=== PATIENT | female | born 1970 | race Caucasian/White ===

== ENCOUNTER 2023-09-14 09:47 | Outpatient (OUT) | payer OTHER, SELFPAY ==
[2023-09-14 11:00] LABS: Estimated Average Glucose 120 mg/dL; Glycohemoglobin A1C 5.8 % (4.5-6.2)
[2023-09-14 11:10] LABS: Basophils Absolute Auto 0.1 10^3/uL (0.0-0.1); Basophils Percent Auto 0.8 % (0.2-2.0); Eosinophils Absolute Auto 0.2 10^3/uL (0.0-0.7); Eosinophils Percent Auto 3.1 % (0.9-7.0); Hematocrit 44.1 % (36.0-48.0); Hemoglobin 14.5 g/dL (12.0-16.0); Immature Granulocytes Abs Auto 0.01 10^3/uL (0.00-0.03); Immature Granulocytes Pct Auto 0.2 % (0.0-0.5); Lymphocytes Absolute Auto 2.3 10^3/uL (1.2-3.8); Mean Corpuscular HGB Conc 32.9 g/dL (29.9-35.2); Mean Corpuscular Hemoglobin 29.1 pg (26.7-34.0); Mean Corpuscular Volume 88.4 fL (81.0-99.0); Mean Platelet Volume 11.3 fL (9.5-13.5); Monocytes Absolute Auto 0.5 10^3/uL (0.3-0.8); Monocytes Percent Auto 7.1 % (1.7-12.0); Neutrophils Absolute Auto 3.5 10^3/uL (1.4-6.5); Neutrophils Percent Auto 53.8 % (43.0-75.0); Platelet Count 267 10^3/uL (150-450); Red Blood Count 4.99 10^6/uL (4.20-5.40); Red Cell Distribution Width 12.6 % (11.0-15.0); White Blood Count 6.5 10^3/uL (4.0-11.0)
[2023-09-14 11:12] LABS: Alanine Aminotransferase 37 U/L (14-59); Albumin Globulin Ratio 1.2; Alkaline Phosphatase 112 U/L (46-116); Anion Gap 15.6; Aspartate Amino Transferase 20 U/L (15-37); BUN Creatinine Ratio 13.8; Bilirubin Total 0.5 mg/dL (0.2-1.0); Calcium 8.9 mg/dL (8.5-10.1); Carbon Dioxide 25.5 mmol/L (21.0-32.0); Chloride 107 mmol/L (98-107); Chol HDL Ratio 3.9; Cholesterol 202 mg/dL (<=200); Estimated GFR (African America >60 (>=60); Estimated GFR (Non-African Ame >60 (>=60); Free T3 2.54 pg/mL (2.18-3.98); Globulin 3.3 g/dL; Glucose 135 mg/dL (74-106); HDL Cholesterol 52 mg/dL (40-60); Potassium 4.1 mmol/L (3.5-5.1); Sodium 144 mmol/L (136-145); Thyroid Stimulating Hormone 4.008 uIU/mL (0.358-3.740); Total Protein 7.3 g/dL (6.4-8.2); Triglycerides 103 mg/dL (<=150); VLDL CHOLESTEROL 20.6 mg/dL
== END 2023-09-14 09:48 | disposition home or self-care (01) ==
LOC: LAB 09:53
PROVIDERS: PCP Family Medicine; Visit Provider Family Medicine
DX: Z00.00 Encounter for general adult medical examination without abnormal findings (principal); R53.83 Other fatigue
CPT/HCPCS: 36415; 80053; 80061; 83036; 84436; 84443; 84481; 85025

== ENCOUNTER 2024-06-02 08:36 | Outpatient (OUT) | payer OTHER, SELFPAY ==
--- NOTE | 2024-06-02 08:38 | US_ITS ---
The [address] [address] Patient Name: GORAN MERRILL MRN: [id number] date: 1970 Sex: F Assigned Patient Location: US Current Patient Location: Accession/Order Number: [id number] Exam Date: 06/03/2024 20:55 Report Date: 06/03/2024 20:57 At the request of: JOVANY BLANCAS MD Procedure: US soft tissue head and neck Ultrasound of the neck to assess mass anterior to the left ear Hypoechoic vascular mass identified. This may be within the left parotid gland. This measures 3.1 x 2.5 x 1.7 cm. US/US soft tissue head and neck IMPRESSION: Hypoechoic vascular 3.1 cm mass in region of lump. This may be within the parotid gland. Impression dictated by: Rajendra Cantrell M.D.06/03/2024 8:57 PM Dictation Location: [place] [address] Electronically authenticated by: [id number] Y Date: 06/03/2024 20:57
== END 2024-06-02 08:37 | disposition home or self-care (01) ==
LOC: US 08:36
PROVIDERS: PCP Family Medicine; Visit Provider Family Medicine
DX: J01.90 Acute sinusitis, unspecified (principal); R22.0 Localized swelling, mass and lump, head
CPT/HCPCS: 76536

== ENCOUNTER 2024-06-09 07:51 | Outpatient (OUT) | payer OTHER, SELFPAY ==
--- NOTE | 2024-06-09 07:55 | CT_ITS ---
The [address] [address] Patient Name: GORAN MERRILL MRN: [id number] date: 1970 Sex: F Assigned Patient Location: CT Current Patient Location: Accession/Order Number: [id number] Exam Date: 06/11/2024 08:05 Report Date: 06/11/2024 08:41 At the request of: JOVANY BLANCAS MD Procedure: CT soft tissue neck w con CT SOFT TISSUE NECK WITH CONTRAST CLINICAL DATA: Nonpainful mass at the left neck near the angle of the jaw. COMPARISON: Ultrasound 06/02/2024 Spiral images were obtained through the neck following 100 mL [address]ip[address] exam was performed using one or more following dose reduction techniques: Automated exposure control, adjustment of the mA and/or kV according to patient size, or use of iterative reconstruction technique. Calcification is seen at the right thyroid lobe. This was also visualized on thyroid ultrasound from August 2018. The submandibular glands are symmetric. There is a heterogeneously enhancing, lobulated soft tissue mass within the left parotid gland. It measures 3.0 x 2.6 x 2.2 cm in size. It correlates with the recent ultrasound exam. There are bilateral shotty cervical lymph nodes, largest in the jugulodigastric region measuring up to 13 - 14 mm in short axis dimension. There is no tonsillar enlargement. The epiglottis and vocal cords are within normal limits. The airway is patent throughout its course with normal appearance of the mucosal surfaces. There is no prevertebral soft tissue swelling. Degenerative changes seen at the spine, greatest at C6-7. There is minor polypoid mucosal thickening at the base of the left maxillary sinus. The remaining imaged paranasal sinuses and mastoid air cells are clear. The upper imaged lungs show no contributory findings. CT/CT soft tissue neck w con IMPRESSION: LEFT PAROTID MASS. ALTHOUGH AN ABNORMAL LYMPH NODE IS IN THE DIFFERENTIAL, NEOPLASM IS NOT EXCLUDED. ENT FOLLOW-UP IS THEREFORE SUGGESTED. SHOTTY CERVICAL LYMPH NODES. Impression dictated by: Melissa Trinidad M.D.06/11/2024 8:41 AM Dictation Location: [place] [address] Electronically authenticated by: [id number] Date: 06/11/2024 08:41
--- OUTSIDE RECORDS SUMMARY | 2024-06-09 07:55 | XMS_ITS | CCD ---
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 Name Role Phone DR JOVANY MELO Attending Unavailable NELSONY, DR MANZO Consulting Unavailable NELSONY, DR MANZO Primary Care Unavailable HOY, DR MANZO Admitting Unavailable HOY, DR MANZO Attending Unavailable NELSONY, DR MANZO Consulting Unavailable NELSONY, DR MANZO Primary Care Unavailable HOY, DR MANZO Admitting Unavailable HOY, DR MANZO Consulting Unavailable MAGALIS, DR MANZO Primary Care Unavailable NELSONY, DR MANZO Admitting Unavailable NELSONY, DR MANZO Attending Unavailable NELSONY, DR MANZO Consulting Unavailable NELSONY, DR MANZO Primary Care Unavailable HOY, DR MANZO Admitting Unavailable MAGALIS, DR MANZO Attending Unavailable Jovany Melo Primary Care Physician Lorena Blair Referring Unavailable Lorena Blair Attending Lorena Marques Admitting Unavailable Allergies Allergy Classification Reported Allergen(s) Allergy Type Date of Onset Reaction(s) Facility (1 source) bee venom Drug allergy (disorder) [facility] Repository (2 sources) Desonide; Translations: [desonide topical] Drug Allergy 09-17-2017 Unknown [facility] Repository (1 source) contact metal agent Drug allergy (disorder) 09-17-2017 [facility] Repository (1 source) Desonide; Translations: [desonide topical] Drug Allergy [facility] Repository Medications Current Medications Medication Drug Class(es) Dates Sig (Normalized) Sig (Original) acetaminophen 325 mg / butalbital 50 mg / caffeine 40 mg oral capsule (1 source) Barbiturate, Central Nervous System Stimulant, Methylxanthine Start: 02-26-2019 take 1 capsule by mouth every four hours for headache APAP/butalbital/ caffeine 325 mg-50 mg-40 mg oral capsule 1 cap(s), Oral, q4hr for headache, 20 cap(s), Refill(s) 0, [id number] Start Date: 02/26/19 Status: Ordered Augmentin (1 source) Penicillin-class Antibacterial Start: 10-09-2019 Augmentin Refills(s) 0 Start Date: 10/09/19 Status: Ordered glipiZIDE (1 source) Sulfonylurea Start: 10-09-2019 glipiZIDE Oral, Daily, Refills(s) 0 Start Date: 10/09/19 Status: Ordered Topamax (1 source) Start: 10-09-2019 Topamax Oral, BID, Refills(s) 0 Start Date: 10/09/19 Status: Ordered Problems Active Problems Problem Classification Problem Date Documented Date Episodic/Chronic Abdominal pain (1 source) Right flank pain 10-09-2019 Episodic Calculus of urinary tract (1 source) Ureteric stone 10-09-2019 Episodic Coagulation and hemorrhagic disorders (1 source) Blood coagulation disorder 10-09-2019 Chronic Diabetes mellitus without complication (1 source) Diabetes mellitus 10-09-2019 Chronic Epilepsy; convulsions (1 source) 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 Genitourinary symptoms and ill-defined conditions (2 sources) Microscopic hematuria; Translations: [Nocturia] 10-09-2019 Episodic Other inflammatory condition of skin (1 source) Lupus erythematosus 10-09-2019 Chronic Other upper respiratory infections (1 source) Chronic pansinusitis; Translations: [CHRONIC PANSINUSITIS] Onset: 12-31-2021 Chronic Other upper respiratory infections (4 sources) Acute sinusitis, unspecified; Translations: [ACUTE SINUSITIS UNSPECIFIED] Onset: 12-29-2021 Episodic Unclassified (3 sources) CONTACT W/AND (SUSP) EXPOS COVID-19; Translations: [CONTACT W/AND (SUSP) EXPOS COVID-19] Onset: 09-22-2021 Viral infection (4 sources) COVID-19; Translations: [COVID-19] Onset: 02-19-2021 Past or Other Problems Problem Classification Problem Date Documented Da te Episodic/Chronic Immunizations and screening for infectious disease (1 source) Encounter for immunization; Translations: [ENCOUNTER FOR IMMUNIZATION] Onset: 02-26-2021 Episodic Unclassified (1 source) CONTACT W/AND (SUSP) EXPOS COVID-19; Translations: [CONTACT W/AND (SUSP) EXPOS COVID-19] Onset: 09-21-2021 Results Test Name Value Interpretation Reference Range Facility Coding Summary.on 03-23-2022 Coding Summary. [id number] Gh0bWw+PGhlYWQ+PE1FV WHrC40yjXFsfO1KC2fDO O1FOYVFAPGQUJ3EFX5sh SE7LVrlM5FfyiPr VmnpaXLiGQ57ZBo0OEF0 tEikJRcqrM0xiKKnD5o9 ClCkNS38wG79JKquNKEd OwW5PuHahimgqFTw E6nxOtMlvSTyIzg+PHRh YmxlIHdpZHRoPScxMDAl WvJgxLyyVM5vJx9qAKBt LWNvbGxhcHNlOiBj u1zcBDPbRDtcTD8yeVwx Z7TooMM3NJTkt7k0Vj72 dHI+PEAfHHM3xXbsVEel h785GpCuf0ttHEZ3 hPOlAPyvMOX3F69xl5T2 NQPqRPPoKFS2dYP9iR6u sOzaidvaR1MpyYNmQyJ9 UQF7yIDktJ9fzBgv zphrzW4mKlj+R60TVU6Z ZZQXXY5EXgf8O6QzIkuw dHI+MU06LVXvGH37sPZj gFCnt6rnmEc2SrDa OIQbSAL3tJcmXGtus3Wr HQTyF36eaQDdp2U3QZWh lHwoxZAaPuWneHV8uE1n VNhexccja6fmjzuw Arsfg4tgpp02gD17X14p CPfcIXPoCOW9LBCzKIBt hFdjmo3tiV1pQu7+IDxj m4fxj5nndBv0DaIz OATdxcJqzNezDAG8y1Of Ar68M6GxvAwjq3JjViz2 sn83lKVom3R0bIM7BAsa CJWftC8sUJrdHzL8 YXCiRiQekQ48sAUrRPjm Mb1rxJuukChqTE8pNLQf qxgzQZHouU9eJLUwcBNn fKokWX3nMSIioakc r182EaQrWBP3LEMvzWAl T1QxkG6aVoRaHRQiFSHm P0JnfZHdJAkwM599IRzx PzV5DNNlwkZjI2Sq YUEqrQcoNgJ4l0S6Hf1M c7NnzljtXAX8QUdyBMOb RjX5SuXwTqB4A9BrVpq5 QAIvkXgzZZ6vA1Ot CHIcwbjvmomvwLO6ARBz JNZzmY55qMQoCKjcZe4r x4K6o964BUEoUHPcxY63 Mx7enRgrXHZxpGOG fS8qguhql6pgiwjlJxNg TIGpQIv8AIu6FUWfyGma LiSxAVT5WhT2DZQ7jWNw oN5efZyxjzupjU8x Oyc+Q87vnM3sXNF4HKH7 uufjIEEbxnCsTU90YW12 D4MiPigbeJAfeEF+PGRp bbZruPoeZS8pDoDu o3jlf1QyXQegH9NyPFXq NYxgTjz6DZBbSYI8yEC8 vW1hZVSoXCazt0G6yEN2 B4AodpUdde7iv1lm WNQpQYklL14vdANiw6F4 DOEkfOF5IOSthRwmZcUg uT68Tfd+HDIvdHmui1Wn Bhhux4yii9wdpRe2 IjMwJSIgdmFsaWduPSJ0 e4HqGn32S52fVAimRPVu CDMkJDHqEGTohNlznm8d yY4kWw1+PGNvbCB3 lEU0dU2pUTAbFaH8HJpr C640NfFhqDTuUdnfn4il j9adxDf7YyCkUIWkxjNd hVghUOF5s5GdRb26 W94mGLzxSTFgQCEuCWXx AKQuoTnild7kpY4uWg7+ WU7mn3tixo57uF05aTY+ MBGzHVB4kKngZCyl OXWbtM2ePWeqMlZ6VAOw IwDdgI40rELhWFhjMv8o sLmmpZjpNV2aNTQsxrfl l018GdSuy6coHWNx iKGxKWiaJSF9N37gw4P7 FNPqSRIiXCW5yOD2gX9f bGlnbjogbGVmdDsgdmVy vEzbIJtlNTmpR207 IHRvcDsnPlBhdGllbnQg UuBjEKm2L6TnUfx8PQXd dHvjYY3pbGGtVDcmNg7l xPallZeiJY2tCZEw drewl824WzPqm2alODUt mCLxWUduRGJ6U82od4J7 TTDjBMJsGDY3wJW1mI4b bGlnbjogbGVmdDsg teTzgPojPCdiDNmcB802 IHRvcDsnPkJpcnRoIERh gAL6FE30QB83aSAxk5E0 gLO3R6FsRHCbtrqa dpmrxYY9APNmAKWvvP80 Ht0spUhzUd4nAPPvQGW0 RHIouEFcG1NiqQ5rHwOx YCQwYOPkW1YjsGMy DJqlU646RVitDrL7CGAk hpUoR6KwLZTjxLtsCmG0 x6A2Aq3PC8L8YF70NF20 wGVtq7D1kDW3M9Yp HKIxeskurivhvBO6WVGv BMFjrD70Ge1unZubZm5g TJBkRCY4YIJncISiP6Tu cT8dZoSoKFUoYFQy G2SknIGlJBchY320NAne CeO7DPIkqxErX4LkTDXv iFgpMoD4b9G4Jt3BLKn1 MO33GO38yEVgi1O4 aAC6S5JwUARwfwviohfy pOZ3YEHaWLLuvA39Yz9r iEleFm3qWQNgQLF9XMXh wBKtD6AsfK8eGgOl IXDuWTSgZ2UyuVXvNSan M563QEorOpI4PIIturUb P4MvDXRwaXolJvF7y5O5 Pm9AXAUsPD47OGE6 nAC3KL74LS28V0QrKlof dGFibGU+PHRhYmxlIHdp ZHRoPScxMDAlJyBzdHls UA8xTg4gPGEyNZVs uWdsxKInVzOmm1otJVQg QSthFN9ydYkaD7UamAT1 LZKqz3d4Xf33C01gD6Mf dXA+OHOcrQB5yIK6 lB5uMvTqXdC8UFrlB086 VcSxrXBcDtkru8inn0qs lXh0TzP3NWRnymAwgLln BHJ9i3CwRu90O04q IHdpZHRoPSIxNSUiIHZh mXiphj7txF2rMq8+PGNv bGU7kFI2dY2eLhCoEhN7 EBxqI621OvYyjWRj Awbpw3qwt2jeuWc5EgYs XHQhwkYsnZzgXBX0i0An Bb42L2MvwPzvm4OpCik5 qs27lHWsd6B6xIL0 A1HhRQEcwbofzPOioMql SX0xBTRfjfbmMFZhaE1l VCOjF8i2XbVmEnO0WQjc O6PkxzE1WMUlcOHq WPnbPBR3E06vs5N1JPCn XWRfAPN8nRG3iI8vsKpc bjogbGVmdDsgdmVydGlj CFatUFruL458JYNj xCeeZQWjvQ4lDDIyqBKl yDdzYQ1gBGMdkdunZcRP ZBvTYpuqAM8JUYhXBMw2 W2ArVbs2NDVswWbb RR9ozWHtWCktPy0jjTte yMqgJT0tJBZwtlbvOBLe lY6zOOWlnIVwnGsaXS6u LOYxqbyxm614GuIz FYT0VTXgkXDrX6SntD7w NdZqCBSwVQSqT8SqbPYy UVrsF335FVdvOqC2AIOc skPmM4LqGHHsdUow CbQ6u6U9Be6uQU3iVS7y CYcwEU13RE86cDQzn5N8 gJZ6T2MzNLKodyxswigu iWW5TDIkJWEujV21 sZIsZBlvJn4kq6Z4x862 EVWdWZMldD97Xz2rdZrz KFLzsWDZpY4ihjjmd6os cjogIzAwMDAwMDt0 PZo5FBIqhGgbUkRgRBP1 NqH2RRH8kVDulG9wjAia zijmoI8rIod+NTEgWWVh fdD1E2TvXgo7FEVs uTutYP1hlJBeISagKt0s nXyrfWgyDD1aQYLqqwav MFIejV5hPSVvbKGwiBcs GB2zFOTtxrqef081 SjGaDBO1TATtqNXeS4Us gC6iKrGuTEAeDFApP1Ju aZAfWUepS394AZaaWbC0 JSEgnjDqM9QbLBMk mRkqMwL4x6A2Ta2WZT8z gYD8G9BlMgk5EOSwhNos AG5reDXjOKktXj9rlCpm iFxrKS8zTPWkrsxm KQVqhI9nSBNyzHKoqVuv XN9pEUWtwwirc730WlUf IQB6WSOqbBRhJ8WgeU8s JzFmXJLzAVCrU7Xt mMYyRAzcS722YUadBoH3 LLDwevFdF3DaFOKdgMwa CvG6g5S3De1XpSYcILZt LZ21ET52AP40M9Ic PjwvdGFibGU+PHRhYmxl IHdpZHRoPScxMDAlJyBz cRfoOR6rYl9bGFNjZHCb jMesvAJaNqJwu2px BRQyEDmzON6ffAtqT1Do pCO7XZUgf8q2Bu73B11i K1BtuKI+DURwoXK6dDM2 lH6eQzHwXtA1AAlw O201RmRiyKDmMlbsj1vg o2fteSn9AnZsPZXskyBl yYwcGCK2b5WnPz28F83u IHdpZHRoPSIyMCUi TFKfqWunqp3yaN0gLn1+ XZEpeYJ6xSS0jE1vLwJl BhH9ZSmdA412LgAjdLOj CjaoL27aN8AlyEE+ DHEzLew1SHXjnAgzNK8w gXQlEXlrWz8cQJA4HkBa LhUzXIxhO3AvIAVyzjpg qzpboRM7FUVjUCDo sK85Hk5hrRhdXf5tCCZu CHU5WNAlqDKtW8GjdM1y JrRtMYTtKJVfK2FdrEQs YCtkO551AMorUdV1 JRRbawSkF6SeJBMupKkb QfE2q2X0Hw3LkOippSBs ZK1kTkXiJEw6C2UrRfm2 YFUcoQhnMQ1xfQLi FMucIa2vjIvinGfdHB5l AVQjgdcqh359UlVyl7fw BXEtfUNeSCcpWHQ6F15s a2K5SZCpAYUhDFH5 fRV5iF3lnHaovypzhVQo dDsgdmVydGljYWwtYWxp N410LUMldWvsTqDWCcj1 Q9HvQqd0CKDllDpb DP0gkPNyVXjeBf2rpRwl wCnzEH5oFOIkdvbyj553 EmDiv9wyPEJyrTMrPOoj UCQ6R89ha1G9WFYw RKPdSIX1hNC4tQ9qsMnh bjogbGVmdDsgdmVydGlj YWjqJNceD946NUFmjGsl Nc9VRzy9R8CnRyy0 DNFsbPvmLU5ijYLjSNrw Wp5tmXhgkNkbKY4sNQAs pmwep013WrRuq6djVYGk tXKsOAwxUXD1N78j x5J3RUAmSOJkOOY9cIU2 iK8ysAprkdjbyJZvjFqu ieSteJziBNwfOAsjU722 IHRvcDsnPlBheWVy OjwvdGQ+LJ44wu18D9Mp HrxjDwb9CLNhHZT0dCP0 jQ4oTIKkUBdrv5N8vXH4 F8LcafPnzx6rf6oq YXBz (more content not included)... Normal [facility] BMPOrdered By: SYSTEM SYSTEM on 03-19-2022 Anion gap [Moles/Vol] 15 mmol/L Normal 6-16 FT Remisol Comment on above: Performed By: #### 2 [id number], [id number], [id number] #### [facility] [address] [place] [address] Calcium [Mass/Vol] 9.2 mg/dL Normal 8.9-11.1 FT R emisol Comment on above: Performed By: #### 2 [id number], [id number], [id number] #### [facility] [address] [place] [address] Chloride [Moles/Vol] 103 mmol/L Normal 101-111 FT Remisol Comment on above: Performed By: #### 2 [id number], [id number], [id number] #### [facility] [address] [place] [address] CO2 [Moles/Vol] 23 mmol/L Normal 21-31 FT Jorge Luis lien Comment on above: Performed By: #### 2 627173, 6870585, [id number] #### [facility] [address] [place] [address] Creatinine [Mass/Vol] 0.9 mg/dL Normal 0.5-1.3 FT Remisol Comment on above: Performed By: #### 2 837330, 3281341, [id number] #### [facility] [address] [place] [address] Glucose [Mass/Vol] 98 mg/dL Normal 55-199 [facility] R emisol Comment on above: Result Comment: If t his glucose result represents a fasting glucose, interpretation should refer to the following reference range: 55-99 mg/dL Performed By: #### 2 758600, [id number], [id number] #### [facility] [address] [place] [address] Potassium [Moles/Vol] 4.0 mmol/L Normal 3.5-5.3 [facility] Remisol Comment on above: Performed By: #### 2 946941, 2679086, [id number] #### [facility] [address] [place] [address] Sodium [Moles/Vol] 137 mmol/L Normal 135-145 [facility] R emisol Comment on above: Performed By: #### 2 924357, 6510604, [id number] #### [facility] [address] [place] [address] Urea nitrogen [Mass/Vol] 12 mg/dL Normal 5-21 FT Remisol Comment on above: Performed By: #### 2 025496, [id number], [id number] #### [facility] [address] [place] [address] BMPon 03-19-2022 Urea nitrogen/Creatinine [Mass ratio] 13 No Units Normal 10-20 [facility] Comment on above: Performed By: #### 2 440835, 4857393, [id number] #### [facility] [address] [place] [address] CBC w/IndicesOrdered By: Gorge Echevarria on 03-19-2022 Erythrocyte distribution width (RBC) [Ratio] 13.2 % Normal 10.9-14.2 [facility] HemeAutoSS Comment on above: Performed By: #### 2 021247, [id number], [id number] #### [facility] [address] [place] [address] Hematocrit (Bld) [Volume fraction] 42.2 % Normal 34.0-46.0 [facility] HemeAutoSS Comment on above: Performed By: #### 2 711902, 3555080, [id number] #### [facility] [address] [place] [address] Hemoglobin (Bld) [Mass/Vol] 14.2 g/dL Normal 12.0-16.0 FT HemeAutoSS Comment on above: Performed By: #### 2 919815, 9976008, [id number] #### [facility] [address] [place] [address] MCH (RBC) [Entitic mass] 28.7 pg Normal 27.0-34.0 FT HemeAutoSS Comment on above: Performed By: #### 2 158556, 9927465, [id number] #### [facility] [address] [place] [address] MCHC (RBC) [Mass/Vol] 33.5 g/dL Normal 31.4-36.0 FT [facility]e[employer] Comment on above: Performed By: #### 2 079854, 6832678, [id number] #### [facility] [address] [place] [address] MCV (RBC) [Entitic vol] 85.6 fL Normal 80.0-100.0 FT HemeAutoSS Comment on above: Performed By: #### 2 268320, 1256391, [id number] #### [facility] [address] [place] [address] Platelet mean volume (Bld) [Entitic vol] 9.4 fL Normal 6.4-10.8 FT [facility]e[employer] Comment on above: Performed By: #### 2 262340, 7423442, [id number] #### [facility] [address] [place] [address] Platelets (Bld) [#/Vol] 261.0 E9/L Normal 150.0-500.0 FT HemeAutoSS Comment on above: Performed By: #### 2 019684, 9620044, [id number] #### [facility] [address] [place] [address] RBC (Bld) [#/Vol] 4.9 E12/L Normal 4.3-5.9 [facility] HemeAutoSS Comment on above: Performed By: #### 2 804230, 6091198, [id number] #### [facility] [address] [place] [address] WBC corrected for nucl RBC Auto (Bld) [#/Vol] 7.8 E9/L Normal 4.0-11.0 [facility] HemeAutoSS Comment on above: Performed By: #### 2 147183, 5655325, [id number] #### [facility] [address] [place] [address] CHEMISTRYOrdered By: SYSTEM SYSTEM on 03-19-2022 GFR/1.73 sq M.predicted among blacks MDRD (S/P/Bld) [Vol rate/Area] mL/min/1.73 m2 Normal >=59mL/min/1. 73 m2 [facility] Chem S GFR/1.73 sq M.predicted among non-blacks MDRD (S/P/Bld) [Vol rate/Area] mL/min/1.73 m2 Normal >=59mL/min/1. 73 m2 [facility] Chem S Urea nitrogen/Creatinine [Mass ratio] 13 mg/mg Normal 10 - 20 [facility] Remisol Consent for Treatmenton 03-01 Consent for Treatment [id number] #1.00CD:127 Normal [facility] eGFRon 03-19-2022 GFR/1.73 sq M.predicted among blacks MDRD (S/P/Bld) [Vol rate/Area] mL/min/{1.73_m2} Normal >=59 [facility] Comment on above: Order Comment: Order added by Discern Expert. Result Comment: eGFR is race adjusted. AA=. Performed By: #### 2 833973, 6077757, [id number] #### [facility] [address] [place] [address] GFR/1.73 sq M.predicted among non-blacks MDRD (S/P/Bld) [Vol rate/Area] mL/min/{1.73_m2} Normal >=59 [facility] Comment on above: Order Comment: Order added by Discern Expert. Result Comment: Fuse Coiler bella kidney disease could be indicated at eGFR's of less than 60 mL/min/1.73m2. Kidney failure is indicated at less than 15 mL/min/1.73m2. Performed By: #### 2 328329, 1358149, [id number] #### [facility] [address] [place] [address] Physician Orderon 03-18-2022 Physician Order [id number] #1.00CD:127 Normal [facility] Covid-19 PCR (CVDTB)on SARS-CoV-2 (COVID-19) RNA FRANKLIN+probe Ql (Unsp spec) Not detected Normal NOT DETECTED [facility] Comment on above: Result Comment: This test is not yet approved or cleared by the [place] FDA. When there are no FDA-approved or cleared tests available, and other criteria are met, FDA can make tests available under an emergency access mechanism called an Emergency Use Authorization (EUA). The EUA for this test is supported by the [place] of Health and Human Service's (HHS's) declaration that circumstances exist to justify the emergency use of in vitro diagnostics for the detection and/or diagnosis of the virus that causes COVID-19. This EUA will remain in effect (meaning this test can be used) for the duration of the COVID-19 declaration justifying emergency of IVDs, unless it is terminated or revoked by FDA (after which the test may no longer be used). When diagnostic testing is negative, the possibility of a false negative should be considered in the context of a patient's recent exposures and the presence of clinical signs and symptoms consistent with SARS-CoV-2. Performed By: #### C VDTB #### [facility] [address] [place], [place] [address] Dr. Aldo Sandhu INFLUENZA A AND B AGon 12-29 INFLUANEGH SEE BELOW Normal [facility] Comment on above: Result Comment: Nega tive for Flu A protein angiten. Infection due to Flu A cannot be ruled out. Flu A angiten in the sample may be below the detection limit of the test. Performed By: #### I NFLUAB #### [facility] [address] [place] [address] Dr. Aldo Sandhu INFLUBNEG SEE BELOW Normal [facility] Comment on above: Result Comment: Nega tive for Flu B protein antigen. Infection due to Flu B cannot be ruled out. Flu B antigen in the sample may be below the detection limit of the test. Performed By: #### I NFLUAB #### [facility] [address] [place] [address] Dr. Aldo Sandhu INFLUENZA A AG Negative Normal NEGATIVE SEE COMMENT [facility] Comment on above: Performed By: #### I NFLUAB #### [facility] [address] [place] [address] Dr. Aldo Sandhu INFLUENZA B AG Negative Normal NEGATIVE SEE COMMENT [facility] Comment on above: Performed By: #### I NFLUAB #### [facility] [address] [place] [address] Dr. Aldo Sandhu INTERNAL CONTROLS Within Normal Limits Normal Wi thin Normal Limits [facility] Comment on above: Performed By: #### I NFLUAB #### [facility] [address] [place] [address] Dr. Aldo Sandhu Covid-19 PCR ([facility])on 08-29 SARS-CoV-2 (COVID-19) RNA FRANKLIN+probe Ql (Unsp spec) Detected Critically abnormal NOT DETECTED [facility] Comment on above: Result Comment: This test is not yet approved or cleared by the [place] FDA. When there are no FDA-approved or cleared tests available, and other criteria are met, FDA can make tests available under an emergency access mechanism called an Emergency Use Authorization (EUA). The EUA for this test is supported by the [place] of Health and Human Service's declaration that circumstances exist to justify the emergency use of in vitro diagnostics for the detection and/or diagnosis of the virus that causes COVID-19. This EUA will remain in effect for the duration of the COVID-19 declaration justifying emergency of IVDs, unless it is terminated or revoked by the FDA (after which the test may no longer be used). Performed By: #### C VDTBH #### [facility] [address] [place], [place] [address] Dr. Aldo Sandhu [facility]29 SARS-CoV-2 (COVID-19) RNA FRANKLIN+probe Ql (Unsp spec) Detected Critically abnormal NOT DETECTED [facility] Comment on above: Result Comment: This test is not yet approved or cleared by the [place] FDA. When there are no FDA-approved or cleared tests available, and other criteria are met, FDA can make tests available under an emergency access mechanism called an Emergency Use Authorization (EUA). The EUA for this test is supported by the [employer] of Health and Human Service's (HHS's) declaration that circumstances exist to justify the emergency use of in vitro diagnostics for the detection and/or diagnosis of the virus that causes COVID-19. This EUA will remain in effect (meaning this test can be used) for the duration of the COVID-19 declaration justifying emergency of IVDs, unless it is terminated or revoked by FDA (after which the test may no longer be used). Performed By: #### C VDTBH #### [facility] [id number] Aldo STACYUTREACHojeannette 04-26-2020 CNPTOUTRSARWAT Patient Outreach (COVAMN) GORAN LESLIE ([id number]) 1970 F Date Time Provider Department 04/26/20 BARI SILVA During your visit today, we recorded the following information about you: Allergies As of Date: 04/26/2020 (No Known Allergies) Date Reviewed: 11/24/2018 Reviewed by: Glenda Nava MA - Fully Assessed Order(s):SARS-COVID VACCINE 1ST DOSE APPT [[id number]] Order #: [id number] FUTURE Prescriptions as of 04/26/2020 Sig: GLIMEPIRIDE 4 MG TABLET SIMVASTATIN 20 MG TABLET TOPIRAMATE 25 MG TABLET Take by mouth twice daily sta* Problem List As Of Date: 04/26/2020 (None) Encounter Status:Closed by DINESH SOSA on 04/29/20 [facility] OBSOLETEon 08-04-2019 OBSOLETE Refill (NEURST) GORAN LESLIE ([id number]) 1970 F Date Time Provider Department 08/04/19 LORENA SHELTON During your visit today, we recorded the following information about you: Allison Villagomez Ma 08/06/2019 2:00 PM Signed Patient has been identified by name and date of : Yes Last office visit in this department: 06/14/2019 RX INSTRUCTIONS: Pharmacy initiated this request. No need to notify patient. Patient phones requesting refills as follows: Pending Prescriptions Disp Refills LEVETIRACETAM 500 MG TABLET 60 tablet 1 Sig: TAKE ONE TABLET BY MOUTH TWICE DAILY STOP DEPAKOTE 2 DAYS AFTER STARTING LEVETIRACETAM EVELYNE: Yes Please review and advise. Allison Villagomez Ma Allergies As of Date: 08/04/2019 (No Known Allergies) Date Reviewed: 11/24/2018 Reviewed by: Glenda Nava MA - Fully Assessed Reason for Visit: Refill Request [94] Refill Request [94] Reason For Visit History Recorded Prescriptions as of 08/04/2019 Sig: GLIMEPIRIDE 4 MG TABLET SIMVASTATIN 20 MG TABLET TOPIRAMATE 25 MG TABLET Take by mouth twice daily sta* DIVALPROEX 500 MG TABLET,DB* Take by mouth. Two pills twic* Problem List As Of Date: 08/04/2019 (None) Medications Discontinued During This Encounter levETIRAcetam (KEPPRA) 500 mg tablet 60 t* 1 06/14/2019 08/06/2019 Route: ORAL Sig: Take 1 tablet by mouth twice daily. Stop Depakote 2 days after starting the levetiracetam. Disc: Changing Therapy/Dosage Form Encounter Status:Closed by LORENA SHELTON on 08/06/19 [facility] OBSOLETEon 07-10-2019 OBSOLETE Refill (NEURST) GORAN LESLIE ([id number]) 1970 Date Time Provider Department 07/10/19 LORENA SHELTON During your visit today, we recorded the following information about you: Allergies As of Date: 07/10/2019 (No Known Allergies) Date Reviewed: 11/24/2018 Reviewed by: Glenda Nava MA - Fully Assessed Reason for Visit: Refill Request [94] Prescriptions as of 07/10/2019 Sig: GLIMEPIRIDE 4 MG TABLET SIMVASTATIN 20 MG TABLET LEVETIRACETAM 500 MG TABLET Take 1 tablet by mouth twice * TOPIRAMATE 25 MG TABLET Take by mouth twice daily sta* DIVALPROEX 500 MG TABLET,DB* Take by mouth. Two pills twic* Problem List As Of Date: 07/10/2019 (None) Encounter Status:Closed by LORENA SHELTON on 07/10/19 [facility] OBSOLETEon 07-08-2019 OBSOLETE Refill (NEURST) GORAN LESLIE ([id number]) 1970 F Date Time Provider Department 07/08/19 LORENA SHELTON During your visit today, we recorded the following information about you: Allison Villagomez Ma 07/09/2019 8:17 AM Signed Patient has been identified by name and date of : Yes Last office visit in this department: 06/14/2019 RX INSTRUCTIONS: Pharmacy initiated this request. No need to notify patient. Patient phones requesting refills as follows: Pending Prescriptions Disp Refills LEVETIRACETAM 500 MG TABLET 60 tablet 1 Sig: TAKE ONE TABLET BY MOUTH TWICE DAILY STOP DEPAKOTE 2 DAYS AFTER STARTING LEVETIRACETAM EVELYNE: Yes Please review and advise. Allison Shelton MD 07/10/2019 8:48 PM Signed Goran is from out of town; she failed the refill checklist because her labs were done at OSH. I discussed them with her. She is diabetic, and the 09/01/18 labs were done while she was on glucocorticoids for her low back. She does not remember the context for the 01/29/19 labs. Her glucose was > 400 on both occasions. The 09/01/18 labs showed a leukocytosis of about 17K with left shift; this likely reflected demargination of mature leukocytes due to glucocorticoid treatment. On both occasions, her alk phos and ALT were elevated - more so on 01/29/19 than on 09/01/18. On neither occasion would it have been high enough to discontinue an AED on the basis of 'numbers' alone. Her AST and bilirubin were OK on both occasions. Her BUN was elevated on one of these occasions, likely due to osmotic diuresis from hyperglycemia. Her sodium was slightly low, likely as an artifact of extreme hyperglycemia. Her levetiracetam was a bridge from divalproex to topiramate. It does not need to be refilled; the request from her pharmacy was initiated by that pharmacy and not by the patient; nor at my direction. Mrs. Leslie tells me she has had no seizures since transitioning to topiramate (she had sporadic ones while on divalproex). She has tolerated the topiramate well, with a little dizziness at first, but no longer. She will get her repeat CMP and CBC with diff at the [facility]. I will let her know if her lab tests prove abnormal. Lorena Shelton MD Allergies As of Date: 07/08/2019 (No Known Allergies) Date Reviewed: 11/24/2018 Reviewed by: Glenda Nava MA - Fully Assessed Reason for Visit: Refill Request [94] Prescriptions as of 07/08/2019 Sig: GLIMEPIRIDE 4 MG TABLET SIMVASTATIN 20 MG TABLET LEVETIRACETAM 500 MG TABLET Take 1 tablet by mouth twice * TOPIRAMATE 25 MG TABLET Take by mouth twice daily sta* DIVALPROEX 500 MG TABLET,DB* Take by mouth. Two pills twic* Problem List As Of Date: 07/08/2019 (None) Encounter Status:Closed by LORENA SHELTON on 07/10/19 [facility] CNOVon 06-14-2019 CNOV Office Visit (NEURST) GORAN LESLIE ([id number]) 1970 F Date Time Provider Department 06/14/19 10:30 AM LORENA SHELTON During your visit today, we recorded the following information about you: Lorena Shelton MD 06/14/2019 11:03 AM Signed 10:30 - 10:55 audio visit. The patient and I were both in our homes due to the pandemic. Duration 25 minutes, more than half counseling. 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 The arm fibers in the spinothalamic tract are medial to the leg fibers; and the decussated fibers of the ascending trigeminal fibers are medial to that - as one would intuitively expect, one would expect the left arm to be involved as well. The distribution of the facial numbness is less problematic; it would suggest a relatively rostral lesion in the dorsolateral medulla (Bianca's Neurological Differential Diagnosis, 1st ed, Figures 11.7 and 11.8 on page 112). The character of the numbness in her left leg is also less problematic, in re: involvement of vibration and JPS. These leg fibers ascend, following their decussation, adjacent to ascending pain and temperature in the face. The lesion would just have to extend a little more medially than usual. SO, sparing of the left arm is the major difficulty thus far. 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 Conversely, Wallenberg's would not explain the associated symptoms we do find - left ptosis, blurry vision and hyposmia. There is no way to make one location in the MARGIN ANALYST encompass all these findings. I am told that her MRI brain was normal in August; her symptoms had evolved prior to that, in July. MRI is 93% sensitive for acute stroke overall; 98% sensitive for 'established' stroke overall; both somewhat lower in the posterior fossa, as this would be. SO, the MRI argues strongly against it, and the clinical discrepancies argue against the idea of false negativity of the MRI. It must be a multifocal process; or a process which does not show on MRI - such as antibody mediated dysfunction due to lupus; or both. ? I would like to have radiology go over the MRI brain images, just to be sure they are unremarkable, as the patient suggests. ? One could try to understand the left leg symptoms as a separate process. If so, it would not be a peripheral nervous system process, as the numbness extends to the umbilicus. It would have to be a spinal cord process. Yet, one again runs into the problem of un-dissociated sensory loss. With a cord process causing ipsilateral loss of vibration and joint position sense, one would expect contralateral, not ipsilateral, loss of pin sensation. ? It is, nonetheless, worth having radiology look at her MRI images, C, T, AND LS spine. The sensory system is often subject to much 'artifact of examination', and it may be that her findings are not really as discrepant as they seem. ? It is important to remember that if nothing shows on the MRI of her entire neuraxis, this could still be lupus; in fact, it makes it more likely that it is lupoid. Were that the case, the treatment would be that of the underlying lupus. ? The patient's seizure disorder could also be on the basis of lupus; I have no better explanation at present. I am somewhat concerned about her driving, but it seems that she has had a long safe track record. Specifically, I am incompletely confident that her seizures will remain confined to hypnogogic and hypnopompic settings, though the longer this proves to be the case, the less troubling it becomes; I have a short perspective on this so far. Regardless of that, I would like for her to be on an adequate antiepileptic regimen - and to adhere to it, rather intuiting when to take an hiatus from it - and I have explained this to her. (See Medications, above). I will check her valproic acid level, as I intuit it will be subtherapeutic on 250 mg bid. I will call her to adjust her medication is that proves to be the case. I am also pursuing an EEG. Her last EEG was long ago, and I do not know whether the record is even still available. ? [Addendum}: . Review of [facility] records on 01/07/19 found: MRI LS spine without contrast 09/26/18 for indication of numbness in her left leg and right side of her face for 4 days remarkable for a renal stone. ? MRI C and T spine without contrast on 08/30/18 for indications, respectively, of acute left leg numbness for 4 days and right facial numbness today ; and of dysesthesia found: ? - marked left C6-7 foraminal narrowing due to a large left paracentral disc which compressed the nerve root [presumably left C7]. There was no abnormal signal in the cord. [This would likely not contribute to either right facial or left leg symptoms]. ? - moderate T 7-8 and [id number] T 8-9 central canal stenosis due to disc disease - but no abnormal cord signal. ? MRI brain with and without contrast on 08/30/18 for acute left leg numbness for 4 days and right facial numbness that day proved normal. ? I see that I did not think to hyperventilate her at the bedside on the day of her visit . 11/27/19: I let Goran know that her valproic acid level was basically undetectable on the low dose she is on - 250 mg bid. I suggested 500 mg bid for 3 days; then as tolerated 500 mg tid; and a level at least 4 days after that. She will get it at the [facility]. I E-prescribed [address] of the 250's she has been using. She does understand the difference in pill strength . 02/26/19: Patient called stating the pain is getting worse. Patient states she is unable to get out of bed due to the pain. Patient is requesting to be seen as soon as possible, refused first available on 03/14/19 stating to long os a wait. Patient requests to speak with a nurse, transferred to the nurse line . I returned her call: The patient's son has migraines. Out of 3 biological children, he has them at age 26, and has since childhood. ? The patient had a first headache of any kind in teen years. They would happen when she was upset. They tended to be bifrontal throbbing . She was not nauseated and did not experience any visual phenomena. She was averse to head movement. They would also occur with URI's. She calls them stress headaches - they still occur once in a while. They tend to be brief, as they respond to Tylenol. ? Around 7 years ago, when she was first diagnosed with lupus, a new kind of headache arose which she refers to as migraines . These headaches involve her whole head. She thinks they start at the occiput. They are a sharp (accedes to 'piercing') and severe. She is nauseated during some of them. She has not noted any visual symptoms. 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 Sometimes stress triggers them. There are no other triggers. On reconsideration, they tend to herald her seizures. They stop after she has had one or more seizures. She tells me her last seizure was 4 days ago. That is the only one she has had since she saw me in October. She gets a headache cocktail from Dr. Melo, containing Reglan, a muscle relaxant, and something else. Different things have been tried. It knocks her out, but when she wakes, she still has the headaches. ? The presenting headaches began 1.5-2. months ago. They are right sided, clarissa-orbital and retro-orbital and frontal. The frontal pain is constant and dull; the pain in and around her eye feels cold with superimposed harp pains which almost bring her to her knees. She is not nauseated by them. She sees, little gnats if I'm in bright light , but it does not sound like a migraine visual aura. The vision in her right eye is blurry - it had been before (see original office visit), but with the pentecostal of these presenting headaches, it has gotten insanely worse . It comes and goes. The glare of oncoming headlights can trigger the blurry vision, though it happens in other situations. She is also photophonophobic and averse to head movement. Her headache has been constant for the 1.5 - 2 months. They have, however, gotten gradually worse ever since they began. At first, it was a mild pain at the vertex. She has been taking Tylenol for it. They didn't help. Then she was given a muscle relaxant and another analgesic both IV. She does not think they ran a vaproic acid level Dr. Melo did 2-3 weeks ago. She does not know what it was but that it was fine . Currently, she still has cold feeling around her eye. The pain at her vertex has receded very significantly. The pain in her forehead is much diminished. ? She is due to see me 03/14/19. With that admittedly long preamble, Goran tells me, I guess I'm doing all right; when I called to make the appointment, I had a headache for 2 months; it started when I woke up, and was still there at bedtime . It resolved in stuttering fashion, gradually, finally leaving 3 weeks ago. She tells me that there was no increase in her Depakote dose precipitating the decline of her headache (1000 mg bid). She is tolerating it OK, except for weight gain (30#). She has never been treated with topiramate. She has not had a seizure for a couple of months. The patient has no personal nor family history of nephrolithiasis. She tells me she drinks lots of water. She is s/p MARISELA. No past medical history on file. No past surgical history on file. Social History Tobacco Use - Smoking status: Former Smoker - Smokeless tobacco: Never Used Substance Use Topics - Alcohol use: Yes - Drug use: Never No family history on file. Current Outpatient Medications on File Prior to Visit Medication Sig - divalproex DR (DEPAKOTE) 500 mg EC tablet Take by mouth. Two pills twice daily. No current facility-administere d medications on file prior to visit. PHYSICAL EXAM General: Alert, conversant, appropriate, early middle aged, FEMALE, in no apparent distress. IMPRESSION To cover seizure prevention, migraine prophylaxis, and the weight gain that Goran has experienced since increasing her dose of Depakote, I will switch her to topiramate, titrating to a dose of 100 mg bid. I have explained that topiramate may cause difficulty thinking - usually in the form of word finding difficulty. It is reversible on discontinuing the drug. It frequently causes tingling in the lips, fingers and toes for the first couple of months of treatment. It sometimes causes a change in the taste of food; in particular, carbonated beverages may taste metallic. It can also cause decreased appetite; approximately one patient in six experiences weight loss while taking topiramate. One to two percent of patients taking topiramate experience urolithiasis; it is thought that drinking water liberally reduces the likelihood of this happening. Unfortunately, the combination of Depakote and topiramate could, during overlapping of the medications on changing over, cause hyperammonemia. For that reason, I will use levetiracetam 500 mg bid as a bridge. I have given Goran detailed instructions on how to do this. She will call if she has trouble with the medications before seeing me in the office next visit. (She continues to have harlequin numbness, with the somatic aspect, on the left, reaching to her chest, and matutinal monocular blurry vision on the right side, where her facial numbness is. She has seen her inspector semiconductor wafer for this without an explanation so far; she tells me that her intraocular pressure has been checked recently, and that she does not have glacuoma (in re: topiramate treatment. She will ask for a morning visit (once Covid 19 has waned) so that I might see her when her right eye vision is blurry. Lorena Shelton MD Staff, General Neurology Referring Provider: SELF [[id number]] Allergies As of Date: 06/14/2019 (No Known Allergies) Date Reviewed: 11/24/2018 Reviewed by: Glenda Nava MA - Fully Assessed Reason for Visit: New Patient [172] Primary Visit Diagnosis:Partial idiopathic epilepsy with seizures of localized onset, not intractable, without status epilepticus (HCC) [G40.009] Other Visit Diagnoses:Migraine without aura and without status migrainosus, not intractable [G43.009] Blurry vision, right eye [H53.8] Numbness and tingling [R20.0, R20.2] Order(s):levETIRAcet am (KEPPRA) 500 mg tabletTake 1 tablet by mouth twice daily. Stop Depakote 2 days after starting the levetiracetam.Disp: 60 tabletRfl: 1 topiramate (TOPAMAX) 25 mg tabletTake by mouth twice daily starting 2 days after stopping Depakote (continue levetiracetam). Week one, 1 pill twice daily, week two, 2 pills twice daily, week three 3 pills twice daily, week 4 and thereafter 4 pills twice daily. Stop levetiracetam 2 days after achieving maintenance dose of topiramate..Disp: 240 tabletRfl: 11 Prescriptions as of 06/14/2019 Sig: GLIMEPIRIDE 4 MG TABLET SIMVASTATIN 20 MG TABLET DIVALPROEX 500 MG TABLET,DB* Take by mouth. Two pills twic* LEVETIRACETAM 500 MG TABLET Take 1 tablet by mouth twice * TOPIRAMATE 25 MG TABLET Take by mouth twice daily sta* Problem List As Of Date: 06/14/2019 (None) Prescriptions ordered this encounter Disp Refills Start End LEVETIRACETAM 500 MG TABLET 60 t* 1 06/14/2019 08/14/2019 Route: ORAL Sig: Take 1 tablet by mouth twice daily. Stop Depakote 2 days after starting the levetiracetam. TOPIRAMATE 25 MG TABLET 240 * 11 06/14/2019 06/13/2020 Sig: Take by mouth twice daily starting 2 days after stopping Depakote (continue levetiracetam). Week one, 1 pill twice daily, week two, 2 pills twice daily, week three 3 pills twice daily, week 4 and thereafter 4 pills twice daily. Stop levetiracetam 2 days after achieving maintenance dose of topiramate.. Disposition: Return AM visit after Covid 19 wanes. Follow-up and Disposition History Recorded Encounter Status:Closed by LORENA SHELTON on 06/14/19 [facility] PROGRESSon 06-12-2019 PROGRESS HNO ID: [id number] Author: Lorena Shelton Service: ? Author Type: Physician Type: Progress Notes Filed: 06/12/2019 7:24 PM Note Text: I have had some trouble with precharting disappearing on the cusp of distance visits. 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 The arm fibers in the spinothalamic tract are medial to the leg fibers; and the decussated fibers of the ascending trigeminal fibers are medial to that - as one would intuitively expect, one would expect the left arm to be involved as well. The distribution of the facial numbness is less problematic; it would suggest a relatively rostral lesion in the dorsolateral medulla (Bianca's Neurological Differential Diagnosis, 1st ed, Figures 11.7 and 11.8 on page 112). The character of the numbness in her left leg is also less problematic, in re: involvement of vibration and JPS. These leg fibers ascend, following their decussation, adjacent to ascending pain and temperature in the face. The lesion would just have to extend a little more medially than usual. SO, sparing of the left arm is the major difficulty thus far. 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 Conversely, Wallenberg's would not explain the associated symptoms we do find - left ptosis, blurry vision and hyposmia. There is no way to make one location in the MARGIN ANALYST encompass all these findings. I am told that her MRI brain was normal in August; her symptoms had evolved prior to that, in July. MRI is 93% sensitive for acute stroke overall; 98% sensitive for 'established' stroke overall; both somewhat lower in the posterior fossa, as this would be. SO, the MRI argues strongly against it, and the clinical discrepancies argue against the idea of false negativity of the MRI. It must be a multifocal process; or a process which does not show on MRI - such as antibody mediated dysfunction due to lupus; or both. I would like to have radiology go over the MRI brain images, just to be sure they are unremarkable, as the patient suggests. One could try to understand the left leg symptoms as a separate process. If so, it would not be a peripheral nervous system process, as the numbness extends to the umbilicus. It would have to be a spinal cord process. Yet, one again runs into the problem of un-dissociated sensory loss. With a cord process causing ipsilateral loss of vibration and joint position sense, one would expect contralateral, not ipsilateral, loss of pin sensation. It is, nonetheless, worth having radiology look at her MRI images, C, T, AND LS spine. The sensory system is often subject to much 'artifact of examination', and it may be that her findings are not really as discrepant as they seem. It is important to remember that if nothing shows on the MRI of her entire neuraxis, this could still be lupus; in fact, it makes it more likely that it is lupoid. Were that the case, the treatment would be that of the underlying lupus. The patient's seizure disorder could also be on the basis of lupus; I have no better explanation at present. I am somewhat concerned about her driving, but it seems that she has had a long safe track record. Specifically, I am incompletely confident that her seizures will remain confined to hypnogogic and hypnopompic settings, though the longer this proves to be the case, the less troubling it becomes; I have a short perspective on this so far. Regardless of that, I would like for her to be on an adequate antiepileptic regimen - and to adhere to it, rather intuiting when to take an hiatus from it - and I have explained this to her. (See Medications, above). I will check her valproic acid level, as I intuit it will be subtherapeutic on 250 mg bid. I will call her to adjust her medication is that proves to be the case. I am also pursuing an EEG. Her last EEG was long ago, and I do not know whether the record is even still available. [Addendum}: . Review of [facility] records on 01/07/19 found: MRI LS spine without contrast 09/26/18 for indication of numbness in her left leg and right side of her face for 4 days remarkable for a renal stone. MRI C and T spine without contrast on 08/30/18 for indications, respectively, of acute left leg numbness for 4 days and right facial numbness today ; and of dysesthesia found: - marked left C6-7 foraminal narrowing due to a large left paracentral disc which compressed the nerve root [presumably left C7]. There was no abnormal signal in the cord. [This would likely not contribute to either right facial or left leg symptoms]. - moderate T 7-8 and [id number] T 8-9 central canal stenosis due to disc disease - but no abnormal cord signal. MRI brain with and without contrast on 08/30/18 for acute left leg numbness for 4 days and right facial numbness that day proved normal. I see that I did not think to hyperventilate her at the bedside on the day of her visit . 11/27/19: I let Goran know that her valproic acid level was basically undetectable on the low dose she is on - 250 mg bid. I suggested 500 mg bid for 3 days; then as tolerated 500 mg tid; and a level at least 4 days after that. She will get it at the [facility]. I E-prescribed [address] of the 250's she has been using. She does understand the difference in pill strength . 02/26/19: Patient called stating the pain is getting worse. Patient states she is unable to get out of bed due to the pain. Patient is requesting to be seen as soon as possible, refused first available on 03/14/19 stating to long os a wait. Patient requests to speak with a nurse, transferred to the nurse line . I returned her call: The patient's son has migraines. Out of 3 biological children, he has them at age 26, and has since childhood. The patient had a first headache of any kind in teen years. They would happen when she was upset. They tended to be bifrontal throbbing . She was not nauseated and did not experience any visual phenomena. She was averse to head movement. They would also occur with URI's. She calls them stress headaches - they still occur once in a while. They tend to be brief, as they respond to Tylenol. Around 7 years ago, when she was first diagnosed with lupus, a new kind of headache arose which she refers to as migraines . These headaches involve her whole head. She thinks they start at the occiput. They are a sharp (accedes to 'piercing') and severe. She is nauseated during some of them. She has not noted any visual symptoms. 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 Sometimes stress triggers them. There are no other triggers. On reconsideration, they tend to herald her seizures. They stop after she has had one or more seizures. She tells me her last seizure was 4 days ago. That is the only one she has had since she saw me in October. She gets a headache cocktail from Dr. Melo, containing Reglan, a muscle relaxant, and something else. Different things have been tried. It knocks her out, but when she wakes, she still has the headaches. The presenting headaches began 1.5-2. months ago. They are right sided, clarissa-orbital and retro-orbital and frontal. The frontal pain is constant and dull; the pain in and around her eye feels cold with superimposed sharp pains which almost bring her to her knees. She is not nauseated by them. She sees, little gnats if I'm in bright light , but it does not sound like a migraine visual aura. The vision in her right eye is blurry - it had been before (see original office visit), but with the pentecostal of these presenting headaches, it has gotten insanely worse . It comes and goes. The glare of oncoming headlights can trigger the blurry vision, though it happens in other situations. She is also photophonophobic and averse to head movement. Her headache has been constant for the 1.5 - 2 months. They have, however, gotten gradually worse ever since they began. At first, it was a mild pain at the vertex. She has been taking Tylenol for it. They didn't help. Then she was given a muscle relaxant and another analgesic both IV. She does not think they ran a vaproic acid level Dr. Melo did 2-3 weeks ago. She does not know what it was but that it was fine . Currently, she still has cold feeling around her eye. The pain at her vertex has receded very significantly. The pain in her forehead is much diminished. She is due to see me 03/14/19. Lorena Shelton MD [facility] PROGRESS HNO ID: [id number] Author: Lorena Shelton Service: ? Author Type: Physician Type: Progress Notes Filed: 06/14/2019 11:03 AM Note Text: 10:30 - 10:55 audio visit. The patient and I were both in our homes due to the pandemic. Duration 25 minutes, more than half counseling. 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 The arm fibers in the spinothalamic tract are medial to the leg fibers; and the decussated fibers of the ascending trigeminal fibers are medial to that - as one would intuitively expect, one would expect the left arm to be involved as well. The distribution of the facial numbness is less problematic; it would suggest a relatively rostral lesion in the dorsolateral medulla (Bianca's Neurological Differential Diagnosis, 1st ed, Figures 11.7 and 11.8 on page 112). The character of the numbness in her left leg is also less problematic, in re: involvement of vibration and JPS. These leg fibers ascend, following their decussation, adjacent to ascending pain and temperature in the face. The lesion would just have to extend a little more medially than usual. SO, sparing of the left arm is the major difficulty thus far. 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 Conversely, Wallenberg's would not explain the associated symptoms we do find - left ptosis, blurry vision and hyposmia. There is no way to make one location in the MARGIN ANALYST encompass all these findings. I am told that her MRI brain was normal in August; her symptoms had evolved prior to that, in July. MRI is 93% sensitive for acute stroke overall; 98% sensitive for 'established' stroke overall; both somewhat lower in the posterior fossa, as this would be. SO, the MRI argues strongly against it, and the clinical discrepancies argue against the idea of false negativity of the MRI. It must be a multifocal process; or a process which does not show on MRI - such as antibody mediated dysfunction due to lupus; or both. ? I would like to have radiology go over the MRI brain images, just to be sure they are unremarkable, as the patient suggests. ? One could try to understand the left leg symptoms as a separate process. If so, it would not be a peripheral nervous system process, as the numbness extends to the umbilicus. It would have to be a spinal cord process. Yet, one again runs into the problem of un-dissociated sensory loss. With a cord process causing ipsilateral loss of vibration and joint position sense, one would expect contralateral, not ipsilateral, loss of pin sensation. ? It is, nonetheless, worth having radiology look at her MRI images, C, T, AND LS spine. The sensory system is often subject to much 'artifact of examination', and it may be that her findings are not really as discrepant as they seem. ? It is important to remember that if nothing shows on the MRI of her entire neuraxis, this could still be lupus; in fact, it makes it more likely that it is lupoid. Were that the case, the treatment would be that of the underlying lupus. ? The patient's seizure disorder could also be on the basis of lupus; I have no better explanation at present. I am somewhat concerned about her driving, but it seems that she has had a long safe track record. Specifically, I am incompletely confident that her seizures will remain confined to hypnogogic and hypnopompic settings, though the longer this proves to be the case, the less troubling it becomes; I have a short perspective on this so far. Regardless of that, I would like for her to be on an adequate antiepileptic regimen - and to adhere to it, rather intuiting when to take an hiatus from it - and I have explained this to her. (See Medications, above). I will check her valproic acid level, as I intuit it will be subtherapeutic on 250 mg bid. I will call her to adjust her medication is that proves to be the case. I am also pursuing an EEG. Her last EEG was long ago, and I do not know whether the record is even still available. ? [Addendum}: . Review of [facility] records on 01/07/19 found: MRI LS spine without contrast 09/26/18 for indication of numbness in her left leg and right side of her face for 4 days remarkable for a renal stone. ? MRI C and T spine without contrast on 08/30/18 for indications, respectively, of acute left leg numbness for 4 days and right facial numbness today ; and of dysesthesia found: ? - marked left C6-7 foraminal narrowing due to a large left paracentral disc which compressed the nerve root [presumably left C7]. There was no abnormal signal in the cord. [This would likely not contribute to either right facial or left leg symptoms]. ? - moderate T 7-8 and [id number] T 8-9 central canal stenosis due to disc disease - but no abnormal cord signal. ? MRI brain with and without contrast on 08/30/18 for acute left leg numbness for 4 days and right facial numbness that day proved normal. ? I see that I did not think to hyperventilate her at the bedside on the day of her visit . 11/27/19: I let Goran know that her valproic acid level was basically undetectable on the low dose she is on - 250 mg bid. I suggested 500 mg bid for 3 days; then as tolerated 500 mg tid; and a level at least 4 days after that. She will get [facility] at the [facility]. I E-prescribed [address] of the 250's she has been using. She does understand the difference in pill strength . 02/26/19: Patient called stating the pain is getting worse. Patient states she is unable to get out of bed due to the pain. Patient is requesting to be seen as soon as possible, refused first available on 03/14/19 stating to long os a wait. Patient requests to speak with a nurse, transferred to the nurse line . I returned her call: The patient's son has migraines. Out of 3 biological children, he has them at age 26, and has since childhood. ? The patient had a first headache of any kind in teen years. They would happen when she was upset. They tended to be bifrontal throbbing . She was not nauseated and did not experience any visual phenomena. She was averse to head movement. They would also occur with URI's. She calls them stress headaches - they still occur once in a while. They tend to be brief, as they respond to Tylenol. ? Around 7 years ago, when she was first diagnosed with lupus, a new kind of headache arose which she refers to as migraines . These headaches involve her whole head. She thinks they start at the occiput. They are a sharp (accedes to 'piercing') and severe. She is nauseated during some of them. She has not noted any visual symptoms. 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 Sometimes stress triggers them. There are no other triggers. On reconsideration, they tend to herald her seizures. They stop after she has had one or more seizures. She tells me her last seizure was 4 days ago. That is the only one she has had since she saw me in October. She gets a headache cocktail from Dr. Melo, containing Reglan, a muscle relaxant, and something else. Different things have been tried. It knocks her out, but when she wakes, she still has the headaches. ? The presenting headaches began 1.5-2. months ago. They are right sided, clarissa-orbital and retro-orbital and frontal. The frontal pain is constant and dull; the pain in and around her eye feels cold with superimposed harp pains which almost bring her to her knees. She is not nauseated by them. She sees, little gnats if I'm in bright light , but it does not sound like a migraine visual aura. The vision in her right eye is blurry - it had been before (see original office visit), but with the pentecostal of these presenting headaches, it has gotten insanely worse . It comes and goes. The glare of oncoming headlights can trigger the blurry vision, though it happens in other situations. She is also photophonophobic and averse to head movement. Her headache has been constant for the 1.5 - 2 months. They have, however, gotten gradually worse ever since they began. At first, it was a mild pain at the vertex. She has been taking Tylenol for it. They didn't help. Then she was given a muscle relaxant and another analgesic both IV. She does not think they ran a vaproic acid level Dr. Melo did 2-3 weeks ago. She does not know what it was but that it was fine . Currently, she still has cold feeling around her eye. The pain at her vertex has receded very significantly. The pain in her forehead is much diminished. ? She is due to see me 03/14/19. With that admittedly long preamble, Goran tells me, I guess I'm doing all right; when I called to make the appointment, I had a headache for 2 months; it started when I woke up, and was still there at bedtime . It resolved in stuttering fashion, gradually, finally leaving 3 weeks ago. She tells me that there was no increase in her Depakote dose precipitating the decline of her headache (1000 mg bid). She is tolerating it OK, except for weight gain (30#). She has never been treated with topiramate. She has not had a seizure for a couple of months. The patient has no personal nor family history of nephrolithiasis. She tells me she drinks lots of water. She is s/p MARISELA. No past medical history on file. No past surgical history on file. Social History Tobacco Use - Smoking status: Former Smoker - Smokeless tobacco: Never Used Substance Use Topics - Alcohol use: Yes - Drug use: Never No family history on file. Current Outpatient Medications on File Prior to Visit Medication Sig - divalproex DR (DEPAKOTE) 500 mg EC tablet Take by mouth. Two pills twice daily. No current facility-administere d medications on file prior to visit. PHYSICAL EXAM General: Alert, conversant, appropriate, early middle aged, FEMALE, in no apparent distress. IMPRESSION To cover seizure prevention, migraine prophylaxis, and the weight gain that Goran has experienced since increasing her dose of Depakote, I will switch her to topiramate, titrating to a dose of 100 mg bid. I have explained that topiramate may cause difficulty thinking - usually in the form of word finding difficulty. It is reversible on discontinuing the drug. It frequently causes tingling in the lips, fingers and toes for the first couple of months of treatment. It sometimes causes a change in the taste of food; in particular, carbonated beverages may taste metallic. It can also cause decreased appetite; approximately one patient in six experiences weight loss while taking topiramate. One to two percent of patients taking topiramate experience urolithiasis; it is thought that drinking water liberally reduces the likelihood of this happening. Unfortunately, the combination of Depakote and topiramate could, during overlapping of the medications on changing over, cause hyperammonemia. For that reason, I will use levetiracetam 500 mg bid as a bridge. I have given Goran detailed instructions on how to do this. She will call if she has trouble with the medications before seeing me in the office next visit. (She continues to have harlequin numbness, with the somatic aspect, on the left, reaching to her chest, and matutinal monocular blurry vision on the right side, where her facial numbness is. She has seen her inspector semiconductor wafer for this without an explanation so far; she tells me that her intraocular pressure has been checked recently, and that she does not have glacuoma (in re: topiramate treatment. She will ask for a morning visit (once Covid 19 has waned) so that I might see her when her right eye vision is blurry. Lorena Shelton MD Staff, General Neurology Normal [facility] Encounters Encounter Date Encounter Type Care Provider Facility Start: 03-19-2022 End: 03-20-2022 ambulatory Lorena Blair Facility:[facility] Start: 03-19-2022 End: 03-19-2022 Patient encounter procedure Lorena Blair [facility] Start: 12-29-2021 End: 12-29-[address] JOVANY MELO Facility:[facility] Start: 09-21-2021 End: 09-21-[address] JOVANY MELO Facility:[facility] Start: 02-19-2021 End: 02-19-[address] JOVANY MELO Facility:[facility] Start: 02-16-2021 End: 02-16-[address] JOVANY MELO Facility:[facility] Procedures Date Procedure Procedure Detail Performing Clinician Appendectomy Lorena Blair section Lorena Flower mike Hysterectomy Lorena Blair Payers Date Payer Category Payer Unknown [id number] [id number] [id number] 1970 Unknown [id number] [id number] [id number] 1970 Unknown [id number] [id number] [id number] 1970 Unknown [id number] [id number] [id number] 1970 Unknown [id number] [id number] 1959 Unknown [id number] Social History Date Type Detail Facility Start: 10-09-2019 Tobacco smoking status Never s moked tobacco (finding) [facility] Sex Assigned At Female [facility] Evaluation + Plan note Note Date & Type Note Facility Evaluation + Plan note No data available for this section [facility] Hospital Discharge instructions Note Date & Type Note Facility Hospital Discharge instructions No data available for this section [facility] Progress note Note Date & Type Note Facility Progress note No data available for this section [facility] Summary Purpose Family History No Family History Records FoundNo Family History Records FoundNo Family History Records Found Advance Directives No Advanced Directives Records FoundNo Advanced Directives Records FoundNo Advanced Directives Records Found Additional Source Comments INFORMATION SOURCE (unrecogn ized section and content) DATE CREATED AUTHOR 04/30/2020 [facility] DATE CREATED AUTHOR AUTHOR'S ORGANIZ ATION 01/01/2022 [facility] DATE CREATED AUTHOR AUTHOR'S ORGANIZ ATION 03/24/2022 [facility] Patient Care team informatio n (unrecognized section and content) Personnel Name: Jovany Melo MD Address: Address: [address] [place] [id number] FOR RECORDS PERTAINING TO PATIENTS WHO ARE OR HAVE BEEN ENROLLED IN A CHEMICAL DEPENDENCY/SUBSTANCEABUSE PROGRAM, SOME INFORMATION MAY BE OMITTED. This clinical summary was aggregated from multiple sources. Caution should be exercised in using it in the provision of clinical care. This summary normalizes information from multiple sources, and as a consequence, information in this document may materially change the coding, format and clinical context of patient data. In addition, data may be omitted in some cases. CLINICAL DECISIONS SHOULD BE BASED ON THE PRIMARY CLINICAL RECORDS. [facility]. provides no warranty or guarantee of the accuracy or completeness of information in this document.
== END 2024-06-09 07:52 | disposition home or self-care (01) ==
LOC: CT 07:52
PROVIDERS: PCP Family Medicine; Visit Provider Family Medicine
DX: R22.0 Localized swelling, mass and lump, head (principal)
CPT/HCPCS: 70491; Q9967